=== PATIENT | male | born 1965 | race Caucasian/White ===

== ENCOUNTER 2020-01-17 00:58 | Outpatient (CLI) | payer OTHER, SELFPAY ==
[2020-01-17 18:01] LABS: SARS-CoV-2 RNA PCR Negative
== END 2020-01-17 00:59 | disposition home or self-care (01) ==
LOC: ANHCOVIDDT 00:58
PROVIDERS: PCP Internal Medicine; Visit Provider Surgery
DX: Z01.812 Encounter for preprocedural laboratory examination (principal); Z20.828 Contact with and (suspected) exposure to other viral communicable diseases
CPT/HCPCS: 87635; C9803; U0003

== ENCOUNTER 2020-01-17 06:45 | Outpatient (CLI) | payer OTHER, SELFPAY ==
--- NOTE | 2020-01-17 08:10 | ECG_ITS ---
Measurements Intervals [place] Rate: 55 P: 22 [place]: 131 QRS: 6 QRSD: 108 T: 32 QT: 393 QTc: 379 Interpretive Statements SINUS BRADYCARDIA BORDERLINE ECG Electronically Signed On 01-17-2020 8:17:53 CDT by Bijan Jaffe D.O.
== END 2020-01-17 06:46 | disposition home or self-care (01) ==
PROVIDERS: PCP Internal Medicine; Visit Provider Anesthesiology
DX: Z87.891 Personal history of nicotine dependence (principal); R94.31 Abnormal electrocardiogram [ECG] [EKG]
CPT/HCPCS: 93005

== ENCOUNTER 2020-01-19 00:43 | Day surgery (SDC) | payer OTHER, SELFPAY ==
[2020-01-04 15:00] VITALS: BMI 29.9
[2020-01-19 06:12] VITALS: BP 144/83; PULSE 64; RESP 16; TEMP 36.4; O2SAT 98
[2020-01-19] MEDS: ACETAMINOPHEN 500 MG TABLET 1000 MG PO (06:27)
[2020-01-19] MEDS: KETOROLAC 15 MG/ML VIAL (*BKC) IV PUSH (06:35)
[2020-01-19] MEDS: LACTATED RINGERS 1,000 ML 30 ML IV CONT (06:36)
--- NOTE | 2020-01-19 07:03 | WPDHPUPDATE1 ---
History and Physical Update Update Date/Time: 01/19/20 07:03 History and Physical has been reviewed, including an updated exam of the patient. There are NO changes in the patient's condition. Risks, benefits, and alternatives have been discussed and questions answered. Patient agrees to proceed with procedure.
--- NOTE | 2020-01-19 07:11 | P.PNAN_ITS ---
Anes - Initial Pre Proc Eval Procedure: Operation Date: 01/19/20 07:30 Proposed Procedures p Umbilical Hernia Repair - Kristian Abernathy MD Date/Time: 01/19/20 07:11 Surgeon: Kristian Abernathy MD Pre Op Diagnosis: umbilical hernia Patient Data Age: 54 Gender: M Height: 5 ft 8 in Weight: 89.9 kg Last Vital Signs Temp 97.5 F L 01/19/20 06:12 Pulse 64 01/19/20 06:12 Resp 16 01/19/20 06:12 BP 144/83 H 01/19/20 06:12 Pulse Ox 98 01/19/20 06:12 Allergies Allergy/AdvReac Type Severity Reaction Status Date / Time No Known Allergies Allergy Verified 01/04/20 15:01 Home Medications Medication Instructions Recorded Confirmed Type sertraline 50 mg tablet 50 mg PO DAILY 12/20/19 01/19/20 History lorazepam 0.5 mg PO DIRECTED PRN 01/04/20 01/19/20 History omeprazole magnesium [Prilosec OTC] 20 mg PO DAILY 01/04/20 01/19/20 History Patient hx anesthesia problems: none Family hx anesthesia problems: none PMFSH Past Medical History Medical History (Updated 01/19/20 @ 07:12 by Tam De Leon MD) Anxiety Depression Hyperlipidemia states resolved Social History Social History Smoking packs per day: 1 Smoking cigarettes per day: 20.0 Years smoked: 30 Smoking pack-years: 30.00 Smoking status: Former smoker Tobacco type: cigarettes Additional smoking assessment comments: QUIT 12 YEARS AGO Alcohol intake: current Drinks per week: 2 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 Questions were solicited and answers provided to the satisfaction of the patient/family/POA.
[2020-01-19] MEDS: ceFAZolin 2 GM/D5W 50 ML 2 GM/50 ML BAG IVPB (07:22)
--- NOTE | 2020-01-19 07:29 | PM.PROC ---
Procedure Note - Detailed Date of procedure: 01/19/20 Pre-op diagnosis: umbilical hernia Post-op diagnosis: same Procedure performed: Umbilical hernia repair Description of procedure: Patient was taken to the operating room and IV sedation was administered. Prep and drape was carried out. The proposed incision along the upper margin of the umbilicus was marked on the skin. Local anesthetic was infiltrated into the skin and the deeper subcutaneous tissues. Incision was made and dissection was carried down through the skin and to the hernia sac. The sac was then dissected free from the umbilical skin and the surrounding subcutaneous tissues. It was dissected down to its neck. Additional local anesthetic was infiltrated into the neck and the fascia surrounding the neck of the hernia sac. The sac was then amputated at its neck. The subcutaneous was undermined around the hernia defect. Additional local was infiltrated around the fascia. The hernia defect was closed with [id number] mattress sutures of 0 Ethibond. The umbilical skin was tacked to the fascia with 3 0 Vicryl suture. The subcutaneous was closed with 3 0 Vicryl. Subcuticular interrupted 4 O Vicryl skin stitches were placed. Wound was dressed with Exofin surgical adhesive. The patient was awakened and taken to recovery in good condition. Counts were correct x2. Anesthesia: MAC and local (0.5% Marcaine with Exparel) Surgeon: Kristian Abernathy MD Diesel Engine Operator: Lorenza MCRAE Estimated blood loss (mL): 5 Drains: No Packing: No Pathology: none sent Complications: None Condition: stable Disposition: same day Findings: 6 millimeter hernia defect
[2020-01-19 08:10] VITALS: BP 123/74; PULSE 66; RESP 16; O2SAT 97
[2020-01-19 08:40] VITALS: BP 115/80; PULSE 96; RESP 16
[2020-01-19 09:10] VITALS: BP 132/86; PULSE 58; RESP 16
== END 2020-01-19 09:25 | disposition home or self-care (01) ==
PROVIDERS: PCP Internal Medicine; Visit Provider Surgery
PROC: (CPT 49585; principal; 2020-01-19 07:30)
DX: K42.9 Umbilical hernia without obstruction or gangrene (principal); Z87.891 Personal history of nicotine dependence; Z68.30 Body mass index [BMI] 30.0-30.9, adult; F41.8 Other specified anxiety disorders
CPT/HCPCS: 49585; A9270; C9290; J0690; J1885; J2250; J2704; J3010; J7120

== ENCOUNTER 2020-06-09 10:19 | Emergency (ER) | payer OTHER, SELFPAY ==
[2020-06-09] VITALS (14 sets, daily range): BP systolic 132–169; BP diastolic 79–101; PULSE 62–82; RESP 11–22; TEMP 36.3; O2SAT 84–99
--- NOTE | ~2020-06-09 | XR_ITS ---
EXAMINATION: XR chest 1V portable INDICATION: Chest pain and high blood pressure TECHNIQUE: Portable AP chest at 1147 hours COMPARISON: None available FINDINGS: There are minimal airspace opacities of the lung bases. No pleural effusion or pneumothorax is identified. The cardiomediastinal silhouette is normal. The visualized osseous structures are unr emarkable. IMPRESSION: 1. Minimal airspace opacities of the lung bases, consistent with atelectasis versus pneumonia. Reviewed, dictated and finalized at location A. [employer] IMPRESSION: 1. Minimal airspace opacities of the lung bases, consistent with atelectasis ve rsus pneumonia.
--- NOTE | 2020-06-09 11:13 | ED.HA ---
HPI - Headache General Chief Complaint: Headache Stated Complaint: high bp reading, headache, nausea Time Seen by Provider: 06/09/20 10:54 Source: patient Mode of arrival: ambulatory Limitations: no limitations History of Present Illness HPI Narrative: A 55-year-old male comes into the emergency department today with not feeling right . Patient states that he for the last day and a half has been feeling off. He states that he feels nauseous with a headache and just out of sorts. Patient states that this has not felt right to him. He does note that he has had issues with blood pressure in the past and has had his medications titrated by his primary care provider. Patient notes that he is taking a little blue pill for this . He states that he checked his home blood pressure with a monitor last night and found it to be 180/113. Patient states when he is checked in the past she is usually in the 160s systolic. Related Data Home Medications Medication Instructions Recorded Confirmed sertraline 50 mg tablet 50 mg PO DAILY 12/20/19 06/09/20 lorazepam 0.5 mg PO DIRECTED PRN 01/04/20 06/09/20 Allergies Allergy/AdvReac Type Severity Reaction Status Date / Time No Known Allergies Allergy Verified 06/09/20 10:29 Review of Systems Review of Systems: Narrative: CONSTITUTIONAL: Denies fever, chills, or sweats. Endorses feeling abnormal but is having trouble describing this EYES: Denies visual changes, redness, or discharge. ENT: Denies rhinorrhea, congestion, sore throat, or otalgia. CARDIOVASCULAR: Denies chest pain, palpitations, or edema. RESPIRATORY: Denies cough or dyspnea. GASTROINTESTINAL: Denies abdominal pain, nausea, vomiting, or diarrhea. GENITOURINARY: Denies dysuria or hematuria. SKIN: Denies rash or itching. MUSCULOSKELETAL: Denies back pain, joint pain, or myalgia. NEUROLOGIC: Denies headache, numbness, dizziness, or weakness. PSYCHIATRIC: Denies anxiety or depression. [facility] Past Medical History Medical History Anxiety Depression Hyperlipidemia states resolved Surgical History Surgical History H/O umbilical hernia repair 01/19/2020 Family History Family History Mother , age 74 Breast cancer Father , age 48, unknown reason No problems noted. Social History Social History Smoking packs per day: 1 Smoking cigarettes per day: 20.0 Years smoked: 30 Smoking pack-years: 30.00 Smoking status: Former smoker Tobacco type: cigarettes Additional smoking assessment comments: QUIT 12 YEARS AGO Alcohol intake: current Drinks per week: 2 Additional occupation/education comments: [employer] P[employer] Gender identity (if verbalized by the patient): Male Spiritual care concerns: No Exam Narrative: Exam Narrative: GENERAL: Well-appearing, well-nourished, and in no acute distress. HEAD: Normocephalic, atraumatic. EYES: PERRLA and EOMI. ENT: Nares clear, no rhinorrhea or epistaxis. Mucous membranes moist. NECK: Supple. No adenopathy or masses. No carotid bruits or JVD CHEST: Clear to auscultation. No respiratory distress. No wheezes rales or rhonchi HEART: Regular rate and rhythm. No murmur heard. Normal peripheral pulses. ABDOMEN: Soft, nontender, nondistended, normal active bowel sounds. EXTREMITIES: Normal range of motion. No edema. SKIN: Warm, dry, no rash. NEURO: No focal deficits. Alert and oriented x3. PSYCH: Normal mood and affect. Course Reevaluation(s) Reevaluation #1: Reevaluated patient. He was resting comfortably. After the medicines he had been given he was dozing off. Patient was feeling much better. Explained to him his normal work-up, patient's blood pressure had come down to 128/80 at the time I evaluated him. At this jose
[2020-06-09 11:42] LABS: Basophils Absolute Auto 0.1 K/mm3 (0.0-0.1); Eosinophils Absolute Auto 0.2 K/mm3 (0-0.3); Eosinophils Percent Auto 3.3 % (0-4.4); Hematocrit 42.1 % (42.0-52.0); Hemoglobin 14.6 g/dL (14.0-18.0); Immature Granulocyte Absolute 0.07 K/mm3 (0.00-0.031); Lymphocytes Absolute Auto 2.01 K/mm3 (0.9-3.2); Lymphocytes Percent Auto 27.7 % (18.3-44.2); Mean Corpuscular HGB Conc 34.7 g/dl (32-36); Mean Corpuscular Volume 83.7 fl (80-100); Monocytes Absolute Auto 0.5 K/mm3 (0.1-0.6); Monocytes Percent Auto 6.9 % (2.6-8.5); Neutrophils Absolute Auto 4.4 K/mm3 (1.3-6.7); Neutrophils Percent Auto 60.1 % (45.5-73.1); Platelet Count Result 196 k/mm3 (150-375); Red Blood Count 5.03 M/mm3 (4.6-6.20); Red Cell Distribution Width 12.3 % (11.5-14.5); White Blood Count 7.3 K/mm3 (4.5-10.0)
[2020-06-09 11:53] LABS: Alanine Aminotransferase 122 U/L (4-50); Albumin Level 4.3 g/dL (3.5-5.1); Alkaline Phosphatase 78 U/L (38-126); Anion Gap 11 mmol/L (8-16); Aspartate Amino Transferase 59 U/L (17-59); Bilirubin,Total 0.6 mg/dL (0.2-1.3); Blood Urea Nitrogen 20 mg/dL (9-20); Calcium 9.3 mg/dL (8.4-10.2); Carbon Dioxide 28 mmol/L (22-30); Chloride 99 mmol/L (98-107); Estimated CRCL calculation 111 ml/min; Estimated Glomerular Filt Rate > 60; Glucose 218 mg/dL (75-110); Potassium 4.3 mmol/L (3.4-5.0); Sodium 138 mmol/L (137-145)
[2020-06-09 12:05] LABS: Troponin I < 0.012 ng/mL (0.000-0.034)
[2020-06-09] MEDS: PROCHLORPERAZINE EDISYLATE 10 MG/2 ML VIAL 5 MG IV PUSH (12:21)
[2020-06-09] MEDS: diphenhydrAMINE HCl INJ 50 MG/ML VIAL 25 MG IV PUSH (12:21)
[2020-06-09] MEDS: KETOROLAC 15 MG/ML VIAL (*BKC) IV PUSH (12:21)
[2020-06-09 12:41] LABS: Troponin I < 0.012 ng/mL (0.000-0.034)
== END 2020-06-09 13:09 | disposition home or self-care (01) ==
PROVIDERS: Emergency Provider Emergency Medicine; PCP Internal Medicine
DX: R51.9 Headache, unspecified (principal); F41.9 Anxiety disorder, unspecified; F32.9 Major depressive disorder, single episode, unspecified; Z87.891 Personal history of nicotine dependence
CPT/HCPCS: 36415; 71045; 80053; 84484; 85025; 96374; 96375; 99284; J0780; J1200; J1885